=== PATIENT | female | born 1980 | race Asian ===

== ENCOUNTER 2020-07-02 18:31 | Emergency (ER) | payer SELFPAY ==
[~2020-07-02] VITALS: Ht 165.1 cm; Wt 79.8 kg
[~2020-07-02 18:31] MED LIST: FLUT1DIS
--- NOTE | 2020-07-02 18:47 | NUR ---
CAME IN FOR VAGINAL BLEEDING STARTED 2 HRS AGO. PT FOUND OUT SHE'S LAST MONDAY, TO ER BED 16, HOOKED TO MONITOR, CHANGED TO HOSP GOWN, WARM BLANKET PROVIDED, PATIENT AAO x 4, NAD NOTED. DR TOVAR AT BEDSIDE
[2020-07-02 19:05] LABS: BASOPHILS # (AUTO) 0.1 /CMM (0.0-0.2); EOSINOPHILS % (AUTO) 3.8 % (0.0-6.0); HEMATOCRIT 42 % (33-45); HEMOGLOBIN 14.1 g/dL (11.5-14.8); LYMPHOCYTES # (AUTO) 1.8 /CMM (0.8-4.8); LYMPHOCYTES % (AUTO) 19.9 % (20.0-44.0); MEAN CORPUSCULAR HGB CONC 34 g/dl (31.0-36.0); MEAN CORPUSCULAR VOLUME 93 fL (82-100); MONOCYTES # (AUTO) 0.6 /CMM (0.1-1.30); MONOCYTES % (AUTO) 6.5 % (2.0-12.0); NEUTROPHILS # (AUTO) 6.3 /CMM (1.8-8.9); NEUTROPHILS % (AUTO) 68.8 % (43.0-81.0); PLATELET COUNT (AUTO) 293 /CMM (150-450); RED BLOOD CELL COUNT(AUTO) 4.49 MIL/uL (4.0-5.2); WHITE BLOOD COUNT (AUTO) 9.2 K/uL (4.3-11.0)
--- NOTE | 2020-07-02 19:13 | NUR ---
CASKET INSPECTOR AT BEDSIDE FOR KATARINA
--- NOTE | 2020-07-02 20:46 | NUR ---
Patient discharged to home in stable condition. Written and verbal after care instructions given. Patient verbalizes understanding of instruction. ambulatory with a steady gait noted. pt aaox4 no acute distress noted, resp even and unlabored.
[2020-07-02 20:47] VITALS: BP 129/62
== END 2020-07-02 20:48 | disposition home or self-care (01) ==
LOC: ER 18:37
DX: O46.91 Antepartum hemorrhage, unspecified, first trimester (principal); O99.511 Diseases of the respiratory system complicating pregnancy, first trimester; J45.909 Unspecified asthma, uncomplicated; Z79.899 Other long term (current) drug therapy; Z3A.11 11 weeks gestation of pregnancy
CPT/HCPCS: 36415; 76856-TC; 84702-TC; 85025-TC; 86850-TC